=== PATIENT | male | born 1945 ===

== ENCOUNTER 2018-10-13 10:19 | Outpatient (CLI) | payer OTHER ==
[~2018-10-13] VITALS: Ht 177.8 cm; Wt 79.8 kg
== END 2018-10-13 10:35 | disposition home or self-care (01) ==
LOC: OFIC 805 10:19
DX: R09.81 Nasal congestion (principal); J30.89 Other allergic rhinitis; R49.0 Dysphonia; H91.90 Unspecified hearing loss, unspecified ear; K21.0 Gastro-esophageal reflux disease with esophagitis

== ENCOUNTER 2019-06-28 07:15 | Outpatient (CLI) | payer OTHER | END 2019-06-28 07:24 | disposition home or self-care (01) | LOC: TOM 07:15 | DX: R10.84 Generalized abdominal pain (principal); R14.0 Abdominal distension (gaseous); K56.699 Other intestinal obstruction unspecified as to partial versus complete obstruction | CPT/HCPCS: 74177; Q9965 ==

== ENCOUNTER 2019-06-28 07:38 | Outpatient (CLI) | payer OTHER | END 2019-06-28 07:46 | disposition home or self-care (01) | LOC: LAB 07:38 | DX: N20.0 Calculus of kidney (principal) ==

== ENCOUNTER 2023-03-06 12:50 | Outpatient (CLI) | payer OTHER ==
[2023-03-06 14:25] LABS: CREATININE SERUM 1.45 mg/dL (0.70-1.30)
== END 2023-03-06 12:52 | disposition home or self-care (01) ==
LOC: LAB 12:50
PROVIDERS: ATTEND Radiology Diagnostic Radiology
DX: D13.6 Benign neoplasm of pancreas (principal)

== ENCOUNTER 2023-03-21 08:19 | Outpatient (CLI) | payer OTHER | END 2023-03-21 08:33 | disposition home or self-care (01) | LOC: MRI 08:19 | PROVIDERS: ATTEND Specialist | DX: D13.6 Benign neoplasm of pancreas (principal) | CPT/HCPCS: 72196; 74182; Q9965; 72197; 74183 ==

== ENCOUNTER 2023-05-30 07:22 | Outpatient (CLI) | payer OTHER | END 2023-05-30 07:26 | disposition home or self-care (01) | LOC: RX STUDY 07:22 | PROVIDERS: ATTEND Specialist | DX: R13.19 Other dysphagia (principal) ==